=== PATIENT | male | born 1960 | race Caucasian/White ===

== ENCOUNTER → 2020-02-03 | Outpatient (CLI) | payer BC ==
[~2020-02-03] MED LIST: ASPI325T8 PO; ATOR40TA59 PO; CARI350T PO; HYDR-3135 PO; IBUP200C9 PO; IOHEXOL 180 MG/ML 10 ML VIAL. ONE; LISI-338 PO; MULT-735 PO; POTA10TA12 PO; ZOLP10TA PO; methylPREDNISolone ACETATE 40 MG/ML VIAL. ONE; methylPREDNISolone ACETATE 80 MG/ML VIAL. ONE
--- NOTE | 2020-02-03 15:51 | PDOC1 ---
INITIAL PAIN CONSULT DATE OF SERVICE: DOS: DATE: 02/03/20 TIME: 15:44 CHIEF COMPLAINT: Chief Complaint: Neck and left upper extremity pain HISTORY OF PRESENT ILLNESS: 59-year-old male presents history of pain base the neck and left shoulder and upper extremity for many years worse over the past 1 to 2 years not the result of any specific injury or accident that he is aware but getting worse over time without any specific loss of function or difficulty with motor function but significant fatigability of the left upper extremity compared to the right with repetitive motions weight lifting carrying items and driving. Patient describes the pain is in the base the neck and into the posterior to the left scapula into the posterior and lateral aspect of the deltoid and the shoulder and into the triceps region also some tingling in the fourth and fifth fingers of the left hand as well. Patient scribes as constant sharp stabbing tingling in the hand burning cramping and aching patient had physical therapy which he believes helps mobility but did not decrease the pain patient reports is also had chiropractic treatment is doing exercise currently. Patient tried hydrocodone as well as Soma and Advil all of which do decrease the pain but only by about 10 to 20%. Patient rates his disability rating 0-10 10 being the worst as a 4 with family home responsibilities 7 with recreation social activity 3 with occupation sexual behavior 0 with self-care activities and 5 life support activity especially sleeping. He reports it wakes him several times a night from sleep does not affect his bowel bladder control or his ability to walk. Patient had MRI scan cervical spine dated January 11, 2020 showing multilevel disc degenerative spondylosis mild central canal and bilateral foraminal stenosis at C6-C7 and s mall to moderate size right C4-C5 paracentral and/or foraminal disc herniation versus disc osteophyte complex. PAST MEDICAL HISTORY: PMH: Hypertension, arthritis, hyperlipidemia PREVIOUS SURGERIES: Past Surgical Hx: Lumbar laminectomy 2008 CURRENT MEDICATIONS: Current Meds: Active Scripts Medications Dose Route/Sig Max Daily Dose Days Date Category Aspirin 325 Mg Tablet 1 Tab PO DAILY 02/03/20 Reported Ambien (Zolpidem Tartrate) 10 Mg Tablet 10 Mg PO PRN QHS PRN 02/03/20 Reported Lisinopril 5 Mg Tablet 1 Tab PO DAILY 02/03/20 Reported Atorvastatin Calcium 40 Mg Tablet 1 Tab PO DAILY 02/03/20 Reported Klor-Con 10 (Potassium Chloride) 10 Meq Tablet.er Unknown Dose PO DAILY 02/03/20 Reported One-Daily Multi-Vitamin (Multivitamin) 1 Each Tablet 1 Tab PO DAILY 30 02/03/20 Reported Advil (Ibuprofen) 200 Mg Capsule 200 Mg PO PRN PRN 02/03/20 Reported Soma (Carisoprodol) 350 Mg Tablet 1 Tab PO TID PRN 02/03/20 Reported [place] 10-325 Tablet (Acetaminophen/Hydrocodone Bitart) 1 Each Tablet 1 Tab PO TID 02/03/20 Reported ALLERGIES; Allergies: Coded Allergies: No Known Drug Allergies (Unverified , 02/03/20) FAMILY HISTORY: Family Hx: Cancer, heart disease, spinal stenosis SOCIAL HISTORY: Social Hx: Patient drinks 2-3 alcoholic drinks a week on average does not smoke not use any illegal illicit recreational drugs is lives with his spouse lives locally in [facility] and works at a local [employer] in [employer] REVIEW OF SYSTEMS: ROS: Positive for those items mentioned in history of present illness, all systems are reviewed, otherwise negative, is complete full and well-documented on patient's chart PHYSICAL EXAM: VS: Blood pressure is 134/85 pulse 88 respiration 16 temperature 98.4 F height is 5 foot 10 inches weight is 197 pounds PE: PHYSICAL EXAMINATION: GENERAL: The patient is awake, alert, oriented, appropriate, very pleasant demeanor HEENT: Shows normocephalic, atraumatic. Extraocular movements are intact and symmetrical. Oral cavity: Mucous membranes moist and pink. Dentition is intact. NECK: Shows anterior throat supple without palpable lymphadenopathy noted. Swallow reflex symmetrical. CHEST: Shows normal on inspection. Breath sounds are clear bilaterally, no rales rhonchi or wheezes auscultated. HEART: Shows S1, S2 clear. No murmurs auscultated. ABDOMEN: Soft, nontender, nondistended. No palpable organomegaly is noted. No rebound or guarding demonstrated. BACK: Shows spine grossly in the midline. Normal-appearing cervical lordotic curvature. Cervical spine shows full rotation motion with some moderate tenderness with left lateral Tatian as well as full extension but full forward flexion without significant increase in pain. Posterior cervical musculature shows symmetrical on inspection on palpation some moderate tenderness diffusely bilaterally in the middle and lower decrease the paraspinous muscle slightly more on the left than the right but present bilaterally without trigger points without atrophy hypertrophy and without asymmetry. There is slightly increased thoracic kyphosis, some minor flattening of the lumbar lordotic curvature. Lumbar paraspinous muscles show symmetrical on inspection, with well-healed midline surgical scar. The patient has good rotational motion of the lumbar spine, both laterally as well as extension and flexion without significant difficulty. No tenderness over the spinous processes, sacrum or sacroiliac regions. EXTREMITIES: Upper extremities show deep tendon reflexes 2+ in the biceps and triceps tendons. Motor exam is 5 on a scale of 5 with right strength, biceps and triceps flexion and 5/5 on the left. Peripheral pulses are 2+ radial. No peripheral edema is noted bilaterally. Upper extremities are warm and dry to touch, equal in color and appearance. Shoulder shrug is strong and intact without loss of strength on resistance as is abduction of the shoulders at 90 degrees. SKIN: Shows warm and dry, good turgor. No edema. No sores, rashes or bruising throughout. IMPRESSION: Impression: 59-year-old male with long history neck and left upper extremity pain and radicular fashion MRI scan cervical spine as noted Arthritis Hypertension Plan: Options were discussed with the patient including conservative medical management physical therapies continued and interventional techniques. Patient would like to pursue interventional techniques. We discussed a cervical epidural steroid injection using description as well as anatomical models to describe the procedure. Risks were discussed including but not limited to: Bleeding, infection, possibility of epidural hematoma and subsequent neurological compromise, dural puncture, headaches, spinal cord and/or nerve damage, side effects of steroid medication, and poor results regarding pain control. Patient understands wished to proceed. Patient return to clinic in approximately 2 weeks for follow-up was counseled as to return appointment a ctivity level and side effects to be aware of. Procedure cervical epidural steroid injection at the C6-7 level, using local ane sthetic under sterile prep and drape using C-arm fluoroscopic guidance under local anesthesia medications injected ; 120 mg Depo-Medrol + 5 mL normal saline and 2 mL contrast; condition at discharge is stable patient tolerated procedure well. and had no complications DEANNE ADAIR MD Feb 03, 2020 15:51
== END ==
LOC: PNCL 12:59
PROVIDERS: ATTEND Anesthesiology
DX: M47.812 Spondylosis without myelopathy or radiculopathy, cervical region (principal); M48.02 Spinal stenosis, cervical region; M79.602 Pain in left arm; I10 Essential (primary) hypertension; E78.5 Hyperlipidemia, unspecified; M19.90 Unspecified osteoarthritis, unspecified site; Z98.890 Other specified postprocedural states; Z79.82 Long term (current) use of aspirin; Z79.899 Other long term (current) drug therapy
CPT/HCPCS: 62321; J1030; J1040; Q9965

== ENCOUNTER → 2020-02-24 | Outpatient (CLI) | payer BC ==
--- NOTE | 2020-02-24 15:24 | PDOC ---
Progress Note - Pain Clinic Date of Service: DOS: DATE: 02/24/20 TIME: 15:20 Diagnosis: Dx: Cervical radiculopathy with cervical degenerative disease and cervical spinal stenosis History or Present Illness: HPI: 59-year-old male returns follow-up status post cervical epidural steroid injection x1 patient reports that he about 50% improved his left arm is doing much better as this was the most symptomatic side and is much improved today is now having pain in the base the neck more in the right shoulder and arm but still about 50% improved patient reports no new motor or sensory deficits no new changes no new deficits patient ports the pain is a 4 to scale 10 is worse of the past week 3 on average and 1 at its least is a 3 today patient was aching sharp at times tight and shooting in the arm tingling and burning as well some cramping in the arm and some more constant pain that is dull in the neck itself. Patient reports no new motor or sensory deficits initially was doing much better with doing work activities household activities traveling greater ease and comfort driving with easier ability. Physical Exam: VS: Blood pressure is 132/85 pulse 91 respirations 18 temperature 98.1 F height is 5 feet 10 inches weight 196 pounds PE: PHYSICAL EXAMINATION: GENERAL: The patient is awake, alert, oriented, appropriate, very pleasant demeanor HEENT: Shows normocephalic, atraumatic. Extraocular movements are intact and symmetrical. Oral cavity: Mucous membranes moist and pink NECK: Shows anterior throat supple without palpable lymphadenopathy noted. Swallow reflex symmetrical. CHEST: Shows normal on inspection. Breath sounds are clear bilaterally. HEART: Shows S1, S2 clear. No murmurs auscultated. ABDOMEN: Soft, nontender, nondistended. No palpable organomegaly is noted. No rebound or guarding demonstrated. BACK: Shows spine grossly in the midline. Normal-appearing cervical lordotic curvature. Neck shows full rotation motion cervical spine both laterally greater than 45 degrees closer to 90 degrees well is full extension full forward flexion without significant difficulty or pain reported. There is slightly increased thoracic kyphosis, some minor flattening of the lumbar lordotic curvature. EXTREMITIES: Upper extremities show deep tendon reflexes 2+ in the biceps and triceps tendons. Motor exam is 5 on a scale of 5 with right groundwater monitoring technician strength, biceps and triceps flexion and 5/5 on the left. Peripheral pulses are 2+ posterior tibial. No peripheral edema is noted bilaterally. Upper extremities are warm and dry to touch, equal in color and appearance. SKIN: Shows warm and dry, good turgor. No edema. No sores, rashes or bruising throughout. Procedure: Procedure: Options were discussed with the patient. Patient's old chart was reviewed his his current medication regimen updated current review of systems updated today as well. We will proceed with a second in the series cervical epidural steroid injection today with fluoroscopic guidance. Risks were discussed including but not limited to: Bleeding, infection, possibility of epidural hematoma and subsequent neurological compromise, dural puncture, headaches, spinal cord and/or nerve damage, side effects of steroid medication, and poor results r egarding pain control. Patient understands wished to proceed. Patient will return to clinic in approximate 2 weeks for follow-up was counseled as to return appointment activity level, and side effects to be aware of. Medication Injected: Med Injected: Procedure cervical epidural steroid injection at the C6-7 level, using local anesthetic under sterile prep and drape using C-arm fluoroscopic guidance under local anesthesia medications injected ; 120 mg Depo-Medrol + 5 mL normal saline and 2 mL contrast; condition at discharge is stable patient tolerated procedure well. and had no complications Condition at Discharge: Condition at Discharge: Condition at discharge stable, patient tolerated the procedure well and had no complications. DEANNE ADAIR MD Feb 24, 2020 15:24
== END | disposition home or self-care (01) ==
LOC: PNCL 14:41
PROVIDERS: ATTEND Anesthesiology
DX: M50.10 Cervical disc disorder with radiculopathy, unspecified cervical region (principal); M48.02 Spinal stenosis, cervical region; Z79.82 Long term (current) use of aspirin; Z79.899 Other long term (current) drug therapy; Z98.890 Other specified postprocedural states
CPT/HCPCS: J1030; J1040; Q9965; 62321

== ENCOUNTER → 2020-03-23 | Outpatient (CLI) | payer BC ==
--- NOTE | 2020-03-23 14:55 | PDOC ---
Progress Note - Pain Clinic Date of Service: DOS: DATE: 03/23/20 TIME: 14:52 Diagnosis: Dx: Cervical radiculopathy with cervical degenerative disease and cervical spinal stenosis History or Present Illness: HPI: 59-year-old male returns follow-up status post cervical epidurals or injections x2. Patient reports about 70% improvement overall in the base of the neck and shoulder especially on the left side is doing much better still some pain in the right side base the neck and shoulder right upper extremity and the right p osterior scapular region as well as in the posterior deltoid tricep and into the forearm at times patient ports is worse with repetitive motions lifting items sometimes driving with his right hand patient reports pain a 5 on a scale 10 is worse over the past week 3 on average 1 its least is a 1 today. Patient ports aching sharp and cramping at times the base of neck and right arm no overt motor loss but some fatigability with the right upper extremity with use. Patient reports it wakes her from sleep at night occasionally about once every 5-6 hours but not every night. Patient reports no new motor or sensory deficits or other complaints. Physical Exam: VS: Blood pressure is 130/82 pulse 96 respirations 18 temperature 90.5 F height is 5 feet 10 inches weight is 192 pounds PE: PHYSICAL EXAMINATION: GENERAL: The patient is awake, alert, oriented, appropriate, very pleasant demeanor HEENT: Shows normocephalic, atraumatic. Extraocular movements are intact and symmetrical. NECK: Shows anterior throat supple without palpable lymphadenopathy noted. Swallow reflex symmetrical. CHEST: Shows normal on inspection. Breath sounds are clear bilaterally. HEART: Shows S1, S2 clear. No murmurs auscultated. ABDOMEN: Soft, nontender, nondistended. No palpable organomegaly is noted. No rebound or guarding demonstrated. BACK: Shows spine grossly in the midline. Normal-appearing cervical lordotic curvature. Cervical paraspinous muscles show symmetrical inspection, on palpation shows some moderate tenderness diffusely more on the right than the left inferior aspect of the cervical paraspinous musculature as well as in the superior medial trapezius on the right but not the left. Patient has good rotation motion cervical spine both laterally greater than 45 degrees closer 9 degrees well is full extension full forward flexion without significant increase in pain. There is slightly increased thoracic kyphosis, some minor flattening of the lumbar lordotic curvature. EXTREMITIES: Upper extremities show deep tendon reflexes 2+ in the biceps and triceps tendons. Motor exam is 5 on a scale of 5 with right digital marketing consultant strength, biceps and triceps flexion and 5/5 on the left. Peripheral pulses are 2+ radial. No peripheral edema is noted bilaterally. Upper extremities are warm and dry to touch, equal in color and appearance. SKIN: Shows warm and dry, good turgor. No edema. No sores, rashes or bruising throughout. Procedure: Procedure: Options were discussed with the patient. Patient chart was reviewed his current medication regimen updated current review of systems updated today as well. We will proceed with a third in the series cervical epidural steroid injection today with fluoroscopic guidance. Risks were discussed including but not limited to: Bleeding, infection, possibility of epidural hematoma and subsequent neurological compromise, dural puncture, headaches, spinal cord and/or nerve damage, side effects of steroid medication, and poor results regarding pain control. Patient understands wished to proceed. Patient return to clinic in roughly 2 weeks for follow-up, was counseled as to return appointment activity level and side effects to be aware of. Medication Injected: Med Injected: Procedure cervical epidural steroid injection at the C6-7 level, using local anesthetic under sterile prep and drape using C-arm fluoroscopic guidance under local anesthesia medications injected ; 120 mg Depo-Medrol + 5 mL normal saline and 2 mL contrast; condition at discharge is stable patient tolerated procedure well. and had no complications Condition at Discharge: Condition at Discharge: Condition at discharge stable, patient tolerated procedure well and had no complications. DEANNE ADAIR MD Mar 23, 2020 14:55
== END | disposition home or self-care (01) ==
LOC: PNCL 13:47
PROVIDERS: ATTEND Anesthesiology
DX: M50.10 Cervical disc disorder with radiculopathy, unspecified cervical region (principal); M48.02 Spinal stenosis, cervical region; Z79.82 Long term (current) use of aspirin; Z79.899 Other long term (current) drug therapy; Z98.890 Other specified postprocedural states
CPT/HCPCS: 62321; J1030; J1040; Q9965

== ENCOUNTER → 2020-09-25 | Outpatient (CLI) | payer BC ==
[~2020-09-25] MED LIST changes: -LISI-338 PO; +LISI-517 PO
--- NOTE | 2020-09-25 11:16 | PDOC4 ---
PROCEDURE Procedure Patient was consented for cervical epidural steroid injection. Risks were d iscussed including but not limited to: Bleeding, infection, possibility of epidural hematoma and subsequent neurological compromise, dural puncture, headaches, spinal cord and/or nerve damage, side effects of steroid medication, and poor results regarding pain control. Patient understands and wished to proceed. Procedure cervical epidural steroid injection at the C6-7 level, using local anesthetic under sterile prep and drape using C-arm fluoroscopic guidance under local anesthesia medications injected ;120 mg Depo-Medrol +5 mL normal saline and 2 mL contrast; condition at discharge is stable patient tolerated procedure well. and had no complications DEANNE ADAIR MD Sep 25, 2020 11:16
--- NOTE | 2020-09-25 11:16 | PDOC ---
Progress Note - Pain Clinic Date of Service: DOS: DATE: 09/25/20 TIME: 11:12 Diagnosis: Dx: Cervical radiculopathy with cervical degenerative disc disease and cervical spinal stenosis History or Present Illness: HPI: 60-year-old male returns for follow-up status post cervical epidural steroid injections last seen March 2020. Patient did very well about 85 to 90% improvement in the neck and shoulders patient reports the pain is returning now over the past few months more in the right than the left and the bilateral shou lders and mid and lower neck patient reports difficulty with lifting the neck far to the right side as well as with extension but not with forward flexion patient reports it wakes him from sleep at night about every 4-5 hours and has over the past month or so patient rates the pain as a 9 on scale 10 is worst over the past week 7 on average 4 to sleep and is a 7 today patient describes aching sharp tight shooting in the upper extremities again more the right than the left cramping and aching can be constant with activity also any more abrupt movement of his head or if he hits his head on an object such as get out of the car or stooping through a doorway etc. Patient reports no new motor or sensory deficits significant pain in the shoulders again more on the right than the left rating the right upper extremity while seated anterior aspect of the bicep into the forearm but without weakness or dropping of items with the upper extremities bilaterally. Physical Exam: VS: Blood pressure is 136/92 pulse 90 respirations 16 temperature is 98.8 F and weight is 192 pounds PE: PHYSICAL EXAMINATION: GENERAL: The patient is awake, alert, oriented, appropriate, very pleasant in demeanor HEENT: Shows normocephalic, atraumatic. Extraocular movements are intact and symmetrical. Patient wearing eyeglasses. Oral cavity: Mucous membranes moist a nd pink. Dentition is intact. NECK: Shows anterior throat supple without palpable lymphadenopathy noted. Swallow reflex symmetrical. CHEST: Shows normal on inspection. Breath sounds are clear bilaterally. HEART: Shows S1, S2 clear. No murmurs auscultated. ABDOMEN: Soft, nontender, nondistended. BACK: Shows spine grossly in the midline. Normal-appearing cervical lordotic curvature. Cervical paraspinous muscles show symmetrical with inspection, on palpation some moderate tenderness diffusely in the middle and lower distribution the paraspinous muscles into the superior medial trapezius again more tender on the right than the left. There is slightly increased thoracic kyphosis, some minor flattening of the lumbar lordotic curvature. EXTREMITIES: Upper extremities show deep tendon reflexes 2+ in the biceps and triceps tendons. Motor exam is 5 on a scale of 5 with right beach patrol lieutenant strength, biceps and triceps flexion and 5/5 on the left. Peripheral pulses are 2+ radial. No peripheral edema is noted bilaterally. Upper extremities are warm and dry to touch, equal in color and appearance. SKIN: Shows warm and dry, good turgor. No edema. No sores, rashes or bruising throughout. Procedure: Procedure: Options discussed with the patient. Patient's chart was reviewed his his current medication regimen updated current review of systems updated today as we ll. We will proceed with a first in the series cervical epidural steroid injection stable fluoroscopic guidance. Risks were discussed including but not limited to: Bleeding, infection, possibility of epidural hematoma and subsequent neurological compromise, dural puncture, headaches, spinal cord and/or nerve damage, side effects of steroid medication, and poor results regarding pain control. Patient understands and wished to proceed. Patient return to the clinic in approximate 3 weeks for follow-up, was counseled as return appointment activity level and side effects to be aware of. Medication Injected: Med Injected: Procedure cervical epidural steroid injection at the C6-7 level, using local anesthetic under sterile prep and drape using C-arm fluoroscopic guidance under local anesthesia medications injected ;120 mg Depo-Medrol +5 mL normal saline and 2 mL contrast; condition at discharge is stable patient tolerated procedure well. and had no complications Condition at Discharge: Condition at Discharge: Condition at discharge stable, patient already the procedure well and had no complications. DEANNE ADAIR MD Sep 25, 2020 11:16
== END | disposition home or self-care (01) ==
LOC: PNCL 10:13
PROVIDERS: ATTEND Anesthesiology
DX: M50.123 Cervical disc disorder at C6-C7 level with radiculopathy (principal); M48.02 Spinal stenosis, cervical region; I10 Essential (primary) hypertension; E78.5 Hyperlipidemia, unspecified; M19.90 Unspecified osteoarthritis, unspecified site; Z79.899 Other long term (current) drug therapy; Z79.82 Long term (current) use of aspirin; Z98.890 Other specified postprocedural states
CPT/HCPCS: 62321; J1030; J1040; Q9965

== ENCOUNTER → 2020-10-30 | Outpatient (CLI) | payer BC ==
--- NOTE | 2020-10-30 10:35 | PDOC ---
Progress Note - Pain Clinic Date of Service: DOS: DATE: 10/30/20 TIME: 10:31 Diagnosis: Dx: Cervical radiculopathy with cervical degenerative disc disease and cervical spinal stenosis History or Present Illness: HPI: 60-year-old male returns for follow-up status post cervical epidural to injection x1 last seen September 28, 2020. Patient reports doing well at 75% improvement after the injection pain returning down the base the neck and shoulders more on the left than the right with some numbness and tingling in the fingers on the left hand patient reports is an 8 on scale 10 is worse over the past week 6 on average/is a 4 today patient describes as aching and dull in the neck shooting and sharp in the left upper extremity burning cramping can be constant with activity reaching a weightbearing patient reports no loss of motor function but has increased fatigue in the left arm which is new since his last visit. Patient reports he is still taking ibuprofen routinely with hydrocodone occasionally both of which do decrease the pain. Patient reports no new motor or sensory deficits no bowel or bladder incontinence. Physical Exam: VS: Blood pressure 140/71 pulse 61 respirations 18 temperature 99.8 F height is 5 feet 10 inches weight is 193 pounds PE: PHYSICAL EXAMINATION: GENERAL: The patient is awake, alert, oriented, appropriate, very pleasant in demeanor HEENT: Shows normocephalic, atraumatic. Extraocular movements are intact and symmetrical. Oral cavity: Mucous membranes moist and pink. Dentition is intact. NECK: Shows anterior throat supple without palpable lymphadenopathy noted. Swallow reflex symmetrical. CHEST: Shows normal on inspection. Breath sounds are clear bilaterally, no rales or rhonchi. HEART: Shows S1, S2 clear. No murmurs auscultated. ABDOMEN: Soft, nontender, nondistended. BACK: Shows spine grossly in the midline. Normal-appearing cervical lordotic curvature. Cervical paraspinous muscles show symmetrical on inspection, on palpation some moderate tenderness diffusely in the inferior aspect of the cervical paraspinous muscular more on the left than the right and into the superior medial trapezius but without specific trigger points or radiation. Patient shows good rotational motion of the cervical spine both laterally as well as extension flexion without significant limitation. There is slightly increased thoracic kyphosis, some minor flattening of the lumbar lordotic curvature. EXTREMITIES: Upper extremities show deep tendon reflexes 2+ in the biceps and triceps tendons. Motor exam is 5 on a scale of 5 with right electrical controls engineer strength, biceps and triceps flexion and 5/5 on the left. Peripheral pulses are 2 radial. No peripheral edema is noted bilaterally. Upper extremities are warm and dry to touch, equal in color and appearance. SKIN: Shows warm and dry, good turgor. No edema. No sores, rashes or bruising throughout. Procedure: Procedure: Options were discussed with the patient. Patient chart reviews his current medication regimen updated current review of systems updated today as well. We will proceed with a cervical epidural steroid injection today with fluoroscopic guidance. Risks were discussed including but not limited to: Bleeding, infection, possibility of epidural hematoma and subsequent neurological compromise, dural puncture, headaches, spinal cord and/or nerve damage, side effects of steroid medication, and poor results regarding pain control. Patient understands and wished to proceed. Patient return to clinic in approximate 2 weeks for follow-up, was counseled as return appointment activity level, and side effects to be aware of. Medication Injected: Med Injected: Procedure cervical epidural steroid injection at the C6-7 level, using local anesthetic under sterile prep and drape using C-arm fluoroscopic guidance under local anesthesia medications injected ;120 mg Depo-Medrol +5 mL normal saline and 2 mL contrast; condition at discharge is stable patient tolerated procedure well. and had no complications Condition at Discharge: Condition at Discharge: Condition at discharge stable, patient already procedure well and had no complications. DEANNE ADAIR MD Oct 30, 2020 10:35
--- NOTE | 2020-10-30 10:36 | PDOC4 ---
Procedure Note: ICD 10 Code: ICD 10 Code: M 54.12 M 48.02 M 50.30 Procedure Note: Patient was consented for cervical epidural steroid injection. Risks were discussed including but not limited to: Bleeding, infection, possibility of epidural hematoma and subsequent neurological compromise, dural puncture, headaches, spinal cord and/or nerve damage, side effects of steroid medication, and poor results regarding pain control. Patient understands and wished to proceed. Procedure cervical epidural steroid injection at the C6-7 level, using local anesthetic under sterile prep and drape using C-arm fluoroscopic guidance under local anesthesia medications injected ;120 mg Depo-Medrol +5 mL normal saline and 2 mL contrast; condition at discharge is stable patient tolerated procedure well. and had no complications DEANNE ADAIR MD Oct 30, 2020 10:36
== END | disposition home or self-care (01) ==
LOC: PNCL 09:43
PROVIDERS: ATTEND Anesthesiology
DX: M50.10 Cervical disc disorder with radiculopathy, unspecified cervical region (principal); M48.02 Spinal stenosis, cervical region; Z79.82 Long term (current) use of aspirin; Z79.899 Other long term (current) drug therapy
CPT/HCPCS: 62321; J1030; J1040; Q9965

== ENCOUNTER → 2021-02-15 | Outpatient (CLI) | payer BC ==
[~2021-02-15] MED LIST changes: +CELE200C PO; -LISI-517 PO; +LISI5TAB15 PO
--- NOTE | 2021-02-15 10:00 | PDOC ---
Progress Note - Pain Clinic Date of Service: DOS: DATE: 02/15/21 TIME: 09:57 Diagnosis: Dx: Cervical radiculopathy with cervical degenerative disease and cervical spinal stenosis History or Present Illness: HPI: 60-year-old male returns for follow-up status post cervical epidural steroid injection October 30, 2020. Patient reports he did very well after injection by 80% improvement for the first month or so the pain began to return but is now more in the right upper extremity as well as the left which is new for him mostly is always on the left side patient reports the pain is radiating in the left upper extremity posterior deltoid also anterior deltoid posterior triceps into the arm and forearm and also the posterior shoulder superiorly on the upper back as well. Patient reports is an 8 on scale 10 is worse over the past week for an average 1 its least is a 4 today patient reports that sharp tight shooting tingling can be cramping and constant worse with repetitive motions reaching and lifting items with his left arm and has been disturbing his sleep occasionally but usually not more than once every 6 hours patient reports most nights he is sleeping fairly well. Patient reports initially was doing much better with distance walking doing household activities work activities try with greater ease and comfort and sleeping better. Patient reports no loss of motor function but significant fatigability of the left arm and some of the right arm now as well but not nearly as severe as the left Physical Exam: VS: Blood pressure is 120/83 pulse 80 respirations 18 temperature 90.5 F weight is 194 pounds PE: PHYSICAL EXAMINATION: GENERAL: The patient is awake, alert, oriented, appropriate, very pleasant in demeanor HEENT: Shows normocephalic, atraumatic. Extraocular movements are intact and symmetrical. Patient wearing eyeglasses. Oral cavity: Mucous membranes moist and pink. Dentition is intact. NECK: Shows anterior throat supple without palpable lymphadenopathy noted. Swallow reflex symmetrical. CHEST: Shows normal on inspection. Breath sounds are clear bilaterally, distant no rales or rhonchi. HEART: Shows S1, S2 clear. No murmurs auscultated. ABDOMEN: Soft, nontender, nondistended. No palpable organomegaly is noted. BACK: Shows spine grossly in the midline. Normal-appearing cervical lordotic curvature. Cervical paraspinous muscles show symmetrical inspection, palpation some moderate tenderness diffusely bilaterally but only diffusely without significant radiation. Patient has full rotation motion cervical spine both laterally as well as full extension full forward flexion without difficulty. There is slightly increased thoracic kyphosis, some minor flattening of the lumbar lordotic curvature. EXTREMITIES: Upper extremities show deep tendon reflexes 2+ in the biceps and triceps tendons. Motor exam is 5 on a scale of 5 with right admissions nurse, biceps and triceps flexion and 5/5 on the left. Peripheral pulses are 2+ radial. No peripheral edema is noted bilaterally. Upper extremities are warm and dry to touch, equal in color and appearance. SKIN: Shows warm and dry, good turgor. No edema. No sores, rashes or bruising throughout. Procedure: Procedure: Options discussed with patient. Patient's old chart was reviewed as his current medication regimen updated current review of systems updated today as well. We will proceed with a cervical epidural steroid injection today with fluoroscopic guidance. Risks were discussed including but not limited to: Bleeding, infection, possibility of epidural hematoma and subsequent neurological compromise, dural puncture, headaches, spinal cord and/or nerve damage, side effects of steroid medication, and poor results regarding pain control. Patient understands and wished to proceed. Patient will return to clinic in approximate 2 weeks for follow-up, was counseled return appointment, activity level, and side effects aware of. Medication Injected: Med Injected: Procedure cervical epidural steroid injection at the C6-7 level, using local anesthetic under sterile prep and drape using C-arm fluoroscopic guidance under local anesthesia medications injected ;120 mg Depo-Medrol +5 mL normal saline and 2 mL contrast; condition at discharge is stable patient tolerated procedure well. and had no complications Condition at Discharge: Condition at Discharge: Condition at discharge stable, patient Melissa the procedure well and had no complications. DEANNE ADAIR MD Feb 15, 2021 10:00
--- NOTE | 2021-02-15 10:01 | PDOC4 ---
Procedure Note: ICD 10 Code: ICD 10 Code: M54.12 M50.30 M4 8.02 Procedure Note: Patient was consented for cervical epidural steroid injection with fluoroscopic guidance. Risks were discussed including but not limited to: Bleeding, infection, possibility of epidural hematoma and subsequent neurological compromise, dural puncture, headaches, spinal cord and/or nerve damage, side effects of steroid medication, and poor results regarding pain control. Patient understands and wished to proceed. Procedure cervical epidural steroid injection at the C6-7 level, using local anesthetic under sterile prep and drape using C-arm fluoroscopic guidance under local anesthesia medications injected ;120 mg Depo-Medrol +5 mL normal saline and 2 mL contrast; condition at discharge is stable patient tolerated procedure well. and had no complications DEANNE ADAIR MD Feb 15, 2021 10:01
== END | disposition home or self-care (01) ==
LOC: PNCL 09:14
PROVIDERS: ATTEND Anesthesiology
DX: M50.10 Cervical disc disorder with radiculopathy, unspecified cervical region (principal); M48.02 Spinal stenosis, cervical region; Z79.82 Long term (current) use of aspirin; Z79.899 Other long term (current) drug therapy
CPT/HCPCS: 62321; J1030; J1040; Q9965

== ENCOUNTER → 2021-04-04 | Outpatient (CLI) | payer BC ==
--- NOTE | 2021-04-04 16:57 | PDOC ---
Progress Note - Pain Clinic Date of Service: DOS: DATE: 04/04/21 TIME: 16:52 Diagnosis: Dx: Cervical radiculopathy with cervical degenerative disease and cervical spinal stenosis History or Present Illness: HPI: 60-year-old male returns for follow-up status post cervical epidural steroid injection last seen February 15, 2021 patient did very well with about 50% improvement in the pain in the neck and the left upper extremity upper extremity, but reports now his right upper extremity is becoming much more significantly painful especially at the base the neck and right shoulder also some pain which is new in the mid back which is not had previously patient reports a 7 on scale 10 is worse over the past week for an average to its least is a 4 today patient report is worse with standing or sitting for prolonged periods and upright position repetitive motions with the right upper extremity driving and difficulty with sleeping patient reports its getting worse with time aching sharp in the neck cramping and stabbing constant in the arm. Patient reports wakes him from sleep at least every 5 hours or sooner initially, patient was doing much better with doing household activities work activities sleeping better now the pain is returning and again in the mid back as well which is new and more in the right upper extremity than the left as it was previously. Patient reports a loss of motor function with significant fatigability of the right upper extremity. Physical Exam: VS: Blood pressure is 120/77 pulse 101 respirations 18 temperature 98.7 F height is 5 feet 10 inches weight 189 pounds PE: PHYSICAL EXAMINATION: GENERAL: The patient is awake, alert, oriented, appropriate, very pleasant in demeanor HEENT: Shows normocephalic, atraumatic. Extraocular movements are intact and symmetrical. Oral cavity: Mucous membranes moist and pink. Dentition is intact . NECK: Shows anterior throat supple without palpable lymphadenopathy noted. Swallow reflex symmetrical. CHEST: Shows normal on inspection. Breath sounds are clear bilaterally. HEART: Shows S1, S2 clear. No murmurs auscultated. ABDOMEN: Soft, nontender, nondistended. No palpable organomegaly is noted. No rebound or guarding demonstrated. BACK: Shows spine grossly in the midline. Normal-appearing cervical lordotic curvature. Cervical paraspinous muscles show symmetrical inspection, on palpation some moderate tenderness in the middle and lower distribution the paraspinous muscles more on the right than the left and into the superior medial trapezius as well but without specific trigger points without radiation. Patient's cervical spine shows full rotation motion without significant limitation. There is slightly increased thoracic kyphosis, some minor flattening of the lumbar lordotic curvature. EXTREMITIES: Upper extremities show deep tendon reflexes 2+ in the biceps and triceps tendons. Motor exam is 5 on a scale of 5 with right public address technician, biceps and triceps flexion and 5/5 on the left. Peripheral pulses are 2+ radial. No yina pheral edema is noted bilaterally. Upper extremities are warm and dry to touch, equal in color and appearance. Shoulder shrug strong intact without loss of strength on resistance bilaterally. SKIN: Shows warm and dry, good turgor. No edema. No sores, rashes or bruising throughout. Procedure: Procedure: Options were discussed with patient. Patient's old chart was reviewed his current medication regimen updated current view of systems updated today as well. We will proceed with a cervical epidural steroid injection today with fluoroscopic guidance. Risks were discussed including but not limited to: Bleeding, infection, possibility of epidural hematoma and subsequent neurological compromise, dural puncture, headaches, spinal cord and/or nerve damage, side effects of steroid medication, and poor results regarding pain control. Patient understands and wished to proceed. Patient will return to the clinic in approximate 2 weeks for follow-up, was counseled as to return appoi ntment, activity level, and side effect to be aware of. Medication Injected: Med Injected: Procedure cervical epidural steroid injection at the C6-7 level, using local anesthetic under sterile prep and drape using C-arm fluoroscopic guidance under local anesthesia medications injected ;120 mg Depo-Medrol +5 mL normal saline and 2 mL contrast; condition at discharge is stable patient tolerated procedure well. and had no complications Condition at Discharge: Condition at Discharge: Patient's condition at discharge stable patient tolerated the procedure well had no complications. DEANNE ADAIR MD Apr 04, 2021 16:57
--- NOTE | 2021-04-04 16:58 | PDOC4 ---
Procedure Note: ICD 10 Code: ICD 10 Code: M54.12 M50.30 M 48.02 Procedure Note: Patient was consented for cervical epidural steroid injection with fluoroscopic guidance. Risks were discussed including but not limited to: Bleeding, infection, possibility of epidural hematoma and subsequent neurological compromise, dural puncture, headaches, spinal cord and/or nerve damage, side effects of steroid medication, and poor results regarding pain control. Patient understands and wished to proceed. Procedure cervical epidural steroid injection at the C6-7 level, using local anesthetic under sterile prep and drape using C-arm fluoroscopic guidance under local anesthesia medications injected ;120 mg Depo-Medrol +5 mL normal saline and 2 mL contrast; condition at discharge is stable patient tolerated procedure well. and had no complications DEANNE ADAIR MD Apr 04, 2021 16:58
== END | disposition home or self-care (01) ==
LOC: PNCL 10:27
PROVIDERS: ATTEND Anesthesiology
DX: M50.10 Cervical disc disorder with radiculopathy, unspecified cervical region (principal); M48.02 Spinal stenosis, cervical region; M54.12 Radiculopathy, cervical region; Z79.82 Long term (current) use of aspirin; Z79.899 Other long term (current) drug therapy
CPT/HCPCS: 62321; J1030; J1040; Q9965